=== PATIENT | male | born 1970 | race American Indian/Alaskan Native ===

== ENCOUNTER 2016-05-23 00:34 | Emergency (ER) | payer BC ==
[2016-05-23 02:17] LABS: Basophils % (Auto) 0.3 % (0.0-1.8); Eosinophils % (Auto) 0.2 % (0.0-4.3); Hematocrit 38.5 % (35.5-45.6); Hemoglobin 12.5 gm/dl (11.8-15.2); Mean Corpuscular HGB Conc 33 % (32-34); Mean Corpuscular Hemoglobin 27 pg (28-32); Mean Corpuscular Volume 82 fl (84-94); Red Cell Distribution Width 13.6 % (13.2-15.2); White Blood Count 6.3 K/mm3 (4.5-11.0)
[2016-05-23 02:26] LABS: Anion Gap 17 mmol/L; BUN/Creatinine Ratio 9.28; Blood Urea Nitrogen 13 mg/dL (9-20); Carbon Dioxide 29 mmol/L (22-30); Chloride 97.1 mmol/L (98-107); Glucose 107 mg/dL (75-100); Potassium 3.9 mmol/L (3.6-5.0); Sodium 139 mmol/L (137-145)
[2016-05-23 02:32] LABS: Platelet Count 234 K/mm3 (140-440)
--- NOTE | 2016-05-23 06:46 | Emergency Department Report ---
ED Chest Pain HPI - General Chief Complaint: Chest Pain Stated Complaint: COUGH, CHEST PAIN Time Seen by Provider: 05/23/16 06:42 Source: patient Mode of arrival: Ambulatory Limitations: No Limitations - History of Present Illness Initial Comments: The patient complained of nonradiating anterior chest pain which occurs only on cough. He's had a productive sputum although minimally so. There's been no hemoptysis. He's had symptoms for one week. He denies nausea vomiting sweating or dyspnea. He took some [id number] medicine "an immune stimulant". He has no prior history of pneumonia nor VTE. He has no history of CAD. There's been no recent significant long distance travel. He has no chest pain at rest and no chest pain on exertion. He has no pleuritic pain. MD Complaint: chest pain -: week(s) Onset: during rest, other (on cough only) Pain Location: other (anterior) Pain Radiation: none Severity: mild, moderate Quality: aching Consistency: intermittent, now resolved Improves With: nothing Worsens With: other (cough) Context: recent illness re: denies: nausea, vomting, diaphoresis, dyspnea, sense of impending doom Other Symptoms: cough. denies: fever, syncope Treatments Prior to Arrival: none Aspirin use within the Past 7 Days: (0) No - Related Data Previous Rx's Medication Instructions Recorded Last Taken Type Azithromycin [Zithromax Z-CRIS] 250 mg PO DAILY #6 tablet 05/23/16 Unknown Rx Benzonatate [Tessalon Perles] 100 mg PO Q8HR #14 capsule 05/23/16 Unknown Rx Allergies Allergy/AdvReac Type Severity Reaction Status Date / Time Penicillins Allergy Angioedema Verified 05/23/16 01:03 ALEXANDRA score - Alexandra Score Age > 65: (0) No Aspirin use within the Past 7 Days: (0) No 3 or more CAD Risk Factors: (0) No 2 or more Angina events in past 24 hrs: (0) No Known CAD with more than 50% Stenosis: (0) No Elevated Cardiac Markers: (0) No ST Deviation Greater than 0.5mm: (0) No ALEXANDRA Score: 0 ED Review of Systems ROS: Stated complaint: COUGH, CHEST PAIN Other details as noted in HPI Constitutional: denies: chills, fever Eyes: denies: eye pain, eye discharge, vision change ENT: denies: ear pain, throat pain Respiratory: cough. denies: shortness of breath, wheezing Cardiovascular: chest pain. denies: palpitations Endocrine: no symptoms reported Gastrointestinal: denies: abdominal pain, nausea, diarrhea Genitourinary: denies: urgency, dysuria Musculoskeletal: denies: back pain, joint swelling, arthralgia Skin: denies: rash, lesions Neurological: denies: headache, weakness, paresthesias Psychiatric: denies: anxiety, depression Hematological/Lymphatic: denies: easy bleeding, easy bruising ED Past Medical Hx - Past Medical History Previous Medical History?: Yes Hx Hypertension: Yes Additional medical history: Connective Disorder, open heart surgery, mass removed from his chest - Surgical History Past Surgical History?: Yes Additional Surgical History: Open heart surgery and mass removed from his lungs. 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 This was in 1996. - Family History Family history: other (mother has congestive heart failure. No CAD no [place] no VTE ) - Social History Substance Use Type: None Other Social History: Works for [employer]. - Medications Home Medications: Home Medications Medication Instructions Recorded Confirmed Last Taken Type Azithromycin [Zithromax Z-CRIS] 250 mg PO DAILY #6 tablet 05/23/16 Unknown Rx Benzonatate [Tessalon Perles] 100 mg PO Q8HR #14 capsule 05/23/16 Unknown Rx ED Physical Exam - General Limitations: No Limitations General appearance: alert, in no apparent distress - Head Head exam: Present: atraumatic, normocephalic - Eye Eye exam: Present: normal appearance, PERRL, EOMI. Absent: scleral icterus - ENT ENT exam: Present: mucous membranes moist - Neck Neck exam: Present: normal inspection - Respiratory Respiratory exam: Present: normal lung sounds bilaterally. Absent: respiratory distress - Cardiovascular Cardiovascular Exam: Present: regular rate, normal rhythm. Absent: systolic murmur, diastolic murmur, rubs, gallop - GI/Abdominal GI/Abdominal exam: Present: soft, normal bowel sounds. Absent: distended, tenderness, guarding, rebound, rigid - Rectal Rectal exam: Present: deferred - Extremities Exam Extremities exam: Present: normal inspection - Back Exam Back exam: Present: normal inspection - Neurological Exam Neurological exam: Present: alert, oriented X3, CN II-XII intact. Absent: motor sensory deficit - Psychiatric Psychiatric exam: Present: normal affect, normal mood - Skin Skin exam: Present: warm, dry, intact, normal color. Absent: rash ED Course Vital Signs 05/23/16 01:18 Temperature 99.1 F Pulse Rate 103 H Blood Pressure 153/93 O2 Sat by Pulse 20 L Oximetry ED Medical Decision Making - Lab Data Result diagrams: 05/23/16 01:55 05/23/16 01:55 Laboratory Results - last 24 hr 05/23/16 05/23/16 05/23/16 01:55 01:55 04:31 WBC 6.3 RBC 4.70 Hgb 12.5 Hct 38.5 MCV 82 L MCH 27 L MCHC 33 RDW 13.6 Plt Count 234 Lymph % (Auto) 12.6 L [place] % (Auto) 11.2 H Eos % (Auto) 0.2 Baso % (Auto) 0.3 Lymph # 0.8 L [place] # 0.7 Eos # 0.0 Baso # 0.0 Seg Neutrophils % 75.7 H Seg Neutrophils # 4.8 Sodium 139 Potassium 3.9 Chloride 97.1 L Carbon Dioxide 29 Anion Gap 17 BUN 13 Creatinine 1.4 Estimated GFR 55 BUN/Creatinine Ratio 9.28 Glucose 107 H Calcium 9.0 Troponin T < 0.010 < 0.010 - EKG Data -: EKG Interpreted by Me EKG shows normal: sinus rhythm Rate: normal - EKG Data Interpretation: LVH (LVH and left atrial enlargement are present. There is slight inferior ST depression and some deep or moderate T-wave inversions in the high lateral and anterolateral leads) - Radiology Data interpreted by me: Chest x-ray shows previous median sternotomy and no acute process. Critical care attestation.: If time is entered above; I have spent that time in minutes in the direct care of this critically ill patient, excluding procedure time. ED Disposition Clinical Impression: Chest wall pain Acute bronchitis Qualifiers: Bronchitis organism: unspecified organism Qualified Code(s): J20.9 - Acute bronchitis, unspecified Disposition: DISCHARGED TO HOME OR SELFCARE Is pt being admited?: No Does the pt Need Aspirin: No Condition: Stable Instructions: Acute Bronchitis (ED), Chest Pain (ED) Additional Instructions: Follow-up with primary care physician Rx as directed. Return any significant chest pain or acute change as needed. Prescriptions: Azithromycin [Zithromax Z-CRIS] 250 mg PO DAILY #6 tablet Benzonatate [Tessalon Perles] 100 mg PO Q8HR #14 capsule Referrals: PRIMARY CAREMD [Primary Care Provider] - 3-5 Days NUSRAT DUNLAP MD [Staff Physician] - 2-3 Days [facility] [Provider Group] - 2-3 Days Time of Disposition: 07:00
[2016-05-23] MEDS ORDERED: TYLENOL ONE (07:31)
[2016-05-23] MEDS ORDERED: TYLENOL PO ONE (07:35)
[2016-05-23 07:41] VITALS: BP 148/76
--- NOTE | 2016-05-23 10:07 | XRay Report ---
ROUTINE CHEST, TWO VIEWS: HISTORY: Painful cough. The trachea, heart, mediastinal contour, lung brito and bony thorax are unremarkable. Sternotomy wires are noted, correlate with history. IMPRESSION: Unremarkable chest x-ray.
== END 2016-05-23 07:42 | disposition home or self-care (01) ==
LOC: ED 00:34
DX: R07.89 Other chest pain (principal); J20.9 Acute bronchitis, unspecified; I10 Essential (primary) hypertension; Z88.0 Allergy status to penicillin
CPT/HCPCS: 36415; 71020; 80048; 84484; 85025; 93005; 93010